=== PATIENT | female | born 2000 | race Caucasian/White ===

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

== ENCOUNTER → 2020-03-22 | Outpatient (CLI) | payer BC, OTHER ==
[~2020-03-22] MED LIST changes: +CLEOCIN HCL300 MG PO; +MEDROL 4MG DOSPA4 MG PO; +PREDNISONE20 MG PO
== END ==
LOC: ZCOL.LAB 07:26
DX: U07.1 COVID-19 (principal)

== ENCOUNTER → 2020-12-16 | Emergency (ER) | payer BC, OTHER ==
[~2020-12-16] VITALS: Ht 172.7 cm; Wt 63.6 kg
[2020-12-16 16:27] VITALS: TEMP 97.6
[2020-12-16 16:53] LABS: COLLECTION METHOD CLEAN CATCH
[2020-12-16 16:58] LABS: BASO # 0.1 (0.0-0.2); BASO % 0.6 % (0.0-2.0); EOS # 0.2 (0.0-0.7); EOS % 2.1 % (0-4.0); GRAN # 4.8 (1.4-6.5); GRAN % 51.3 % (42.2-75.2); HEMATOCRIT 41.3 % (35.0-45.0); HEMOGLOBIN 14.4 g/dl (12.0-15.0); LYMPH # 3.8 (1.2-3.4); LYMPH % 40.3 % (20.0-51.0); MEAN CELL VOLUME 93 fl (80.0-95.0); MEAN CORPUSCULAR HEMOGLOBIN 32 pg (26.0-32.0); MEAN CORPUSCULAR HGB CONC 35 g/dl (33.0-37.0); MEAN PLATELET VOLUME 9.6 fl (7.4-10.4); MONO # 0.5 (0.1-0.6); MONO % 5.4 % (1.7-9.3); PLATELET COUNT 96 K/mm3 (130-400); RED BLOOD COUNT 4.46 M/mm3 (4.10-5.30); REDCELL DISTRIBUTION WIDTH-CV 14.3 % (11.5-14.5)
[2020-12-16 17:00] LABS: PH 8 (5-8); URINE APPEARANCE Clear; URINE BACTERIA None Seen /hpf; URINE BILIRUBIN Negative (NEGATIVE); URINE BLOOD Negative (NEGATIVE); URINE COLOR Straw; URINE GLUCOSE Negative (NEGATIVE); URINE KETONE Negative (NEGATIVE); URINE LEUKOCYTE ESTERASE Trace (NEGATIVE); URINE NITRATE Negative (NEGATIVE); URINE PROTEIN(semi-quant) Negative (NEGATIVE); URINE RBC 0-2 /hpf; URINE UROBILINOGEN Negative (NEGATIVE); URINE WBC 0-2 /hpf
[2020-12-16 17:06] LABS: ALBUMIN 4.2 gm/dL (3.5-5.0); BILIRUBIN,TOTAL 0.4 mg/dL (0.0-1.0); CALCIUM 9.2 mg/dL (8.4-10.2); CREATININE, serum 0.49 (0.52-1.25); TOTAL PROTEIN 8.1 gm/dL (6.4-8.2)
[2020-12-16 17:24] LABS: TRICYCLIC ANTIDEPRESS URINE NEGATIVE
[2020-12-16 17:55] VITALS: BP 117/86; PULSE 81
== END ==
LOC: COL.ER 16:13
PROVIDERS: Nurse Practitioner Primary Care
DX: R42 Dizziness and giddiness (principal); R53.81 Other malaise; F17.290 Nicotine dependence, other tobacco product, uncomplicated; Z32.02 Encounter for pregnancy test, result negative; Z88.0 Allergy status to penicillin; Z88.1 Allergy status to other antibiotic agents; Z79.52 Long term (current) use of systemic steroids

== ENCOUNTER 2021-04-19 16:57 | Emergency (ER) | payer BC ==
[~2021-04-19] VITALS: Ht 172.7 cm; Wt 64.5 kg
[2021-04-19 17:04] VITALS: TEMP 97.8
[2021-04-19 17:44] LABS: COLLECTION METHOD CLEAN CATCH
[2021-04-19 18:19] LABS: MUCOUS Present /lpf; PH 7 (5-8); URINE APPEARANCE Clear; URINE BACTERIA Rare /hpf; URINE BILIRUBIN Negative (NEGATIVE); URINE BLOOD Negative (NEGATIVE); URINE COLOR Yellow; URINE GLUCOSE Negative (NEGATIVE); URINE KETONE Negative (NEGATIVE); URINE LEUKOCYTE ESTERASE Negative (NEGATIVE); URINE NITRATE Negative (NEGATIVE); URINE PROTEIN(semi-quant) Negative (NEGATIVE); URINE RBC 0-2 /hpf; URINE UROBILINOGEN Negative (NEGATIVE)
[2021-04-19 19:08] VITALS: BP 112/70; PULSE 76
== END 2021-04-19 19:08 | disposition home or self-care (01) ==
LOC: COL.ER 16:57
PROVIDERS: Nurse Practitioner
DX: R51.9 Headache, unspecified (principal); R42 Dizziness and giddiness; F17.290 Nicotine dependence, other tobacco product, uncomplicated; Z20.822 Contact with and (suspected) exposure to COVID-19
CPT/HCPCS: J1200; J2765; J7030